=== PATIENT | female | born 2000 | race Caucasian/White ===

== ENCOUNTER 2024-08-25 18:32 | Emergency (ER) | payer OTHER ==
[~2024-08-25] VITALS: Ht 167.6 cm; Wt 76.8 kg
[2024-08-25 18:37] VITALS: BP 145/83; TEMP 97.6; O2SAT 100
[2024-08-25] MEDS ORDERED: IBUP200C25 PO (18:42)
== END 2024-08-25 21:45 | disposition home or self-care (01) ==
LOC: M ED 18:32
DX: S00.03XA Contusion of scalp, initial encounter (principal); V49.40XA Driver injured in collision with unspecified motor vehicles in traffic accident, initial encounter; Z88.0 Allergy status to penicillin; Z79.1 Long term (current) use of non-steroidal anti-inflammatories (NSAID); Y92.410 Unspecified street and highway as the place of occurrence of the external cause; Y93.89 Activity, other specified; Y99.9 Unspecified external cause status